=== PATIENT | female | born 1945 | race Caucasian/White ===

== ENCOUNTER → 2024-05-30 09:19 | Outpatient (REF) | payer MEDICARE, OTHER, SELFPAY | LOC: RAD 09:19 | PROVIDERS: ATTENDING PHYSICIAN Internal Medicine Hematology & Oncology; FAMILY PHYSICIAN Family Medicine | DX: M81.8 Other osteoporosis without current pathological fracture (principal); Z78.0 Asymptomatic menopausal state | CPT/HCPCS: 77080 ==

== ENCOUNTER → 2024-12-30 09:04 | Outpatient (REF) | payer MEDICARE, OTHER, SELFPAY | LOC: RCS 09:04 | PROVIDERS: ATTENDING PHYSICIAN Family Medicine | DX: R07.9 Chest pain, unspecified (principal); R00.2 Palpitations | CPT/HCPCS: 93225; 93226 ==

== ENCOUNTER → 2025-01-06 10:54 | Outpatient (REF) | payer MEDICARE, OTHER, SELFPAY | LOC: HWRCS 10:54 | PROVIDERS: ATTENDING PHYSICIAN Family Medicine | DX: R07.9 Chest pain, unspecified (principal) | CPT/HCPCS: 78452; 93017; A9500; J2785 ==

== ENCOUNTER 2025-05-07 20:45 | Inpatient (IN) | payer MEDICARE, OTHER, SELFPAY ==
[2025-05-07] VITALS (42 sets, daily range): BP systolic 93–140; BP diastolic 48–113; BMI 28.9; BMI 28.7
[2025-05-07 15:27] LABS: Hematocrit 44.8 % (37.0-47.0); Hemoglobin 14.3 g/dL (12.0-16.0); Mean Corp Hgb Conc. 31.9 g/dL (33.0-37.0); Mean Corpuscular Volume 85.8 fL (81.0-99.0); Nucleated Red Blood Cells % 0 %; Platelet Count 343 10^3/uL (130-400); Red Cell Dist. Width 14.0 % (11.5-14.5)
[2025-05-07 15:48] LABS: ALT (SGPT) 18 U/L (0-35); AST (SGOT) 25 U/L (14-36); Albumin 4.5 g/dl (3.5-5.0); Alkaline Phosphatase 62 U/L (38-126); Blood Urea Nitrogen 22 mg/dl (7-17); Calcium 10.0 mg/dl (8.4-10.2); Carbon Dioxide 25 mmol/L (22-30); Chloride 107 mmol/L (98-107); Glucose 129 mg/dl (70-99); Potassium 4.9 mmol/L (3.5-5.1); Sodium 141 mmol/L (135-145); Total Protein 7.4 g/dl (6.3-8.2); eGFR > 60.00
--- NOTE | 2025-05-07 16:21 | ED.GENMED ---
History of Present Illness
<ASPEN Pollard - Last Filed: 05/07/25 19:55>
General
Chief Complaint: Heart Rate Problem
Source: patient
Exam Limitations: none
Time Seen by Provider: 05/07/25 16:20
Nursing documentation reviewed up to this point in time: agreed with
History of Present Illness
History of Present Illness:
Patient is an 80-year-old female with past medical history of hypertension sent to the ER by her family doctor Dr. Schwab. Patient has had intermittent episodes of palpitations for the past several weeks however this morning felt increase
symptoms. She was seen at primary care provider and found to be in a flutter. Patient has no prior history of a flutter or A-fib. She does not have a senior interaction designer. She does not have a cardiac history. She is very anxious on arrival.
reports she is a poor historian.
Past History
<ASPEN Pollard - Last Filed: 05/07/25 19:55>
Past History
ED Past Medical History: Cancer (Breast), HTN, NIDDM (Borderline diabetes) and Other (Obesity)
ED Past Surgical History: Appendectomy, and Gynecological (Left breast lumpectomy September 2016)
Social History
Tobacco: Former smoker (Quit at age 30)
Alcohol: Occasional (Rare alcohol)
Personal:
Living: with family
Employment: Retired
Family History
Family History: Hypertension
Phy Exam
<ASPEN Pollard - Last Filed: 05/07/25 19:55>
General Physical Exam
General Presentation: no apparent distress
General age: appears stated age
General Skin: warm and dry
General Habitus: elderly
General Mental: alert
General Hydration: appears well hydrated
Cardiovascular Exam
Cardiovascular Exam: irregularly irregular
Pulmonary Exam
Pulmonary Exam: lungs clear and no respiratory distress
Neurological Exam
Neurological Exam: alert and oriented x3
Musculoskeletal Exam
Musculoskeletal Exam: full ROM
Skin Exam
Skin Exam: normal color and warm/dry
Psychiatric Exam
Psychiatric Exam: normal mood/affect
Course
<ASPEN Pollard - Last Filed: 05/07/25 19:55>
Orders/Labs/Results
Orders:
Orders
05/07/25 14:55
Electrocardiogram (*1) Urgent
Reason for Study: Chest Pain
EKG- Treatment ONCE
05/07/25 15:15
Complete Blood Count/With Diff Urgent
Comprehensive Metabolic Panel Urgent
TSH Reflex To Free T4 Urgent
Comment: ADD ON
05/07/25 16:42
Add On- LAB Urgent
Tests Added?: tsh with reflexive t4
0.9% Sodium Chloride 1000 ml [Nss] 1,000 ml IV BOLUS
Diltiazem HCl [Cardizem] 10 mg IV NOW STA
05/07/25 16:45
Diltiazem 125 mg/125 ml Nss [Cardizem] 125 mg in 125 ml IV PER PROTOCOL
Initial dose in mg/hr, then titrate:: 5
Titrate to keep:: Heart rate 80-100 bpm
Titrate by mg/hr:: 5 mg/hr
Frequency of titrations (minutes):: 15
Maximum dose in mg/hr:: 15
05/07/25 18:56
Apixaban [Eliquis] 5 mg PO NOW STA
Abnormal Lab Results
05/07/25
15:15
MCHC 31.9 L g/dL
(33.0-37.0)
Abs Immat Gran (auto) 0.1 H 10^3/uL
(0-0.05)
Absolute Neuts (auto) 8.2 H 10^3/uL
(1.4-6.5)
Absolute Lymphs (auto) 1.1 L 10^3/uL
(1.2-3.4)
Neutrophils % 83.3 H %
(42.2-75.2)
Lymphocytes % 10.9 L %
(20.5-51.1)
BUN 22 H mg/dl
(7-17)
Glucose 129 H mg/dl
(70-99)
05/07/25 15:15
05/07/25 15:15
Vital Signs
Initial and Last Documented VS:
Initial Vital Signs
Temp Pulse Resp BP Pulse Ox
98.4 F 124 18 133/79 98
05/07/25 15:02 05/07/25 15:02 05/07/25 15:02 05/07/25 15:02 05/07/25 15:02
Last Documented Vital Signs
Temp Pulse Resp BP Pulse Ox
98.4 F 84 22 140/76 96
05/07/25 15:02 05/07/25 19:15 05/07/25 19:15 05/07/25 19:15 05/07/25 18:45
<Kirk Ortega MD - Last Filed: 05/07/25 19:07>
Orders/Labs/Results
Orders:
Orders
05/07/25 14:55
Electrocardiogram (*1) Urgent
Reason for Study: Chest Pain
EKG- Treatment ONCE
05/07/25 15:15
Complete Blood Count/With Diff Urgent
Comprehensive Metabolic Panel Urgent
TSH Reflex To Free T4 Urgent
Comment: ADD ON
05/07/25 16:42
Add On- LAB Urgent
Tests Added?: tsh with reflexive t4
0.9% Sodium Chloride 1000 ml [Nss] 1,000 ml IV BOLUS
Diltiazem HCl [Cardizem] 10 mg IV NOW STA
05/07/25 16:45
Diltiazem 125 mg/125 ml Nss [Cardizem] 125 mg in 125 ml IV PER PROTOCOL
Initial dose in mg/hr, then titrate:: 5
Titrate to keep:: Heart rate 80-100 bpm
Titrate by mg/hr:: 5 mg/hr
Frequency of titrations (minutes):: 15
Maximum dose in mg/hr:: 15
05/07/25 18:56
Apixaban [Eliquis] 5 mg PO NOW STA
Abnormal Lab Results
05/07/25
15:15
MCHC 31.9 L g/dL
(33.0-37.0)
Abs Immat Gran (auto) 0.1 H 10^3/uL
(0-0.05)
Absolute Neuts (auto) 8.2 H 10^3/uL
(1.4-6.5)
Absolute Lymphs (auto) 1.1 L 10^3/uL
(1.2-3.4)
Neutrophils % 83.3 H %
(42.2-75.2)
Lymphocytes % 10.9 L %
(20.5-51.1)
BUN 22 H mg/dl
(7-17)
Glucose 129 H mg/dl
(70-99)
05/07/25 15:15
05/07/25 15:15
Vital Signs
Initial and Last Documented VS:
Initial Vital Signs
Temp Pulse Resp BP Pulse Ox
98.4 F 124 18 133/79 98
05/07/25 15:02 05/07/25 15:02 05/07/25 15:02 05/07/25 15:02 05/07/25 15:02
Last Documented Vital Signs
Temp Pulse Resp BP Pulse Ox
98.4 F 84 22 140/76 96
05/07/25 15:02 05/07/25 19:15 05/07/25 19:15 05/07/25 19:15 05/07/25 18:45
<ASPEN Pollard - Last Filed: 05/07/25 19:55>
MDM/Problems Addressed
Differential Diagnosis Includes:
Not limited arrhythmia, rapid A-fib
MDM/Problems Addressed:
Patient is a 89-year-old female who has had intermittent palpitations recently and today was found to be in A-fib by PCP. Patient was sent here. No prior history of A-fib. Patient presented 130s rapid A-fib however no acute distress at
bedside. Patient was started on Cardizem which did decrease her heart rate. No chest pain no associated shortness of breath. She is not hypoxic. Case reviewed with cardiology. Patient wishes to follow-up with Dr. Henson's group therefore I
spoke with Dr. Velazco on-call patient with no contraindications and started on Eliquis. Will admit to the hospital service as patient is on IV Cardizem for rate control of A-fib
Chronic conditions affecting care:
Hypertension
<ASPEN Pollard - Last Filed: 05/07/25 19:55>
*Pulse Oximetry
SaO2: 98
Oxygen Mode of Delivery: Room air
Patient hypoxic: no
*EKG
Interpreted by ED Provider?: Yes
Heart Rate: 130
Rate: tachycardiac
Rhythm: a-fib
Ischemia: non-specific ST changes
*Critical Care Note
Total Time (30-74mins, 75-104mins- exclusive of procedures): Not Applicable
<ASPEN Pollard - Last Filed: 05/07/25 19:55>
Patient Management
Discussion with other providers: Lumber Kiln Operator (dr velazco )
ED Attending Note
<ASPEN Pollard - Last Filed: 05/07/25 19:55>
-
Portions of this chart may have been created with voice recognition software.� Occasional wrong word or��sound alike� substitutions may have occurred due to the inherent limitations of voice recognition software.
<Kirk Ortega MD - Last Filed: 05/07/25 19:07>
ED Attending Note
Patient seen and examined by attending physician: Yes
I performed the substantive portion of visit, reviewed & personally made and approve the management plan that is documented in note by myself or DAYANA.: Yes
ED Attending Note:
Patient presents with rapid heartbeat. Started this morning but has been intermittent for a while. No anticoagulation. No chest pain or shortness of breath no syncope presented in A-fib RVR in the 130s.
Lungs clear and equal. Heart irregular irregular no murmur. Small scar in the upper chest. No sternotomy scar. Warm and dry. Perfusing well. Extremities unremarkable.
EKG A-fib RVR. Rate control anticoagulation and admission
Discharge Plan
Departure
Patient Disposition: Admit
Date of Disposition: 05/07/25
Time of Disposition: 18:57
Admit to: Telemetry
Admit to doctor: hospitalist
Presentation/result/management discussed w/ accepting MD/DO: Hospitalist
Patient with high blood pressure during this ER visit?: No
Condition: Fair
Covid-19: Not Applicable
Discharge Problem:
Atrial fibrillation
Prescriptions:
New
Eliquis DVT-PE Treat 30D Start 5 mg (74 tabs) tablets,dose pack
See Rx Instructions .ROUTE .COMPLEX Qty: 74 0RF
Rx Instructions:
5 mg twice daily
No Action
nadolol-bendroflumethiazide 40 MG/5 MG tablet
1 tab PO DAILY
letrozole 2.5 MG tablet
2.5 mg PO DAILY
fenofibrate nanocrystallized 145 MG tablet
145 mg PO DAILY
atorvastatin [Lipitor] 20 mg Tablet
20 mg
metformin 1,000 mg Tablet
100 mg
fenofibrate nanocrystallized [Tricor] 145 mg Tablet
145 mg PO DAILY
Bystolic
Referrals:
Cassius Whitfield MD [Family Provider, Family Practice]
Interventions
Interventions:
*Risk Screen - Suicide Last Done: 05/07/25 15:02
*General Assessment Last Done: 05/07/25 15:02
*Neglect/Abuse Screening Last Done: 05/07/25 15:02
ED- Cardiac Assessment Last Done: 05/07/25 19:06
ED- Pulmonary Assessment Last Done: 05/07/25 19:06
Discharge Date and Time
Print Language: FILIPINO
[2025-05-07] MEDS: CARDIZEM 125 IV (17:19)
[2025-05-07] MEDS: CARDIZEM 10 MG IV (17:20)
[2025-05-07] MEDS: NSS 1000 IV (17:21)
[2025-05-07] MEDS: ELIQUIS 5 MG PO (19:09)
--- NOTE | 2025-05-07 19:29 | HPS.HSE ---
Family Physician
-
Family Physician: Cassius Whitfield
Chief Complaint
-
Heart racing sent by PCP for a flutter
History of Present Illness
80-year-old female who was seen at her PCP office today due to complaints of her heart racing fast. She was sent by her PCP thought to be in a flutter however on arrival she was in rapid A-fib. The patient only recalls her heart occasionally
racing she does not remember any palpitations however her at bedside took her to her PCP due to her complaining of her heart racing today. He states she had full workup with labs [address] Schwab. He also reports she has had
some memory impairment and has been weaning off of lorazepam 0.5 mg daily she has not had in the past 1.5 weeks. The patient does ask repetitive questions has difficulty with remembering review of systems. Patient denies headache, fever, chills,
chest pain, shortness of breath, cough, abdominal pain, nausea, vomiting, diarrhea, urinary symptoms. She was reported to be anxious on arrival in the ER. She has past medical history of breast cancer status post left breast lumpectomy September
2017, HTN, DM 2, former smoker quit age 30, anxiety, memory impairment short-term with repetitive questions.
Medical History
Past Medical History
Past Medical History: Reports Other
Additional Past Medical History:
breast cancer status post left breast lumpectomy September 2016
HTN
DM 2
former smoker quit age 30
Anxiety
Short-term memory impairment with repetitive questions
Past Surgical History: Reports Other
Additional Past Surgical History:
Appendectomy
section
Left breast lumpectomy September 2016 secondary to breast cancer
Social History
Tobacco: Former Smoker (Quit age 30)
Alcohol: Occasional
Family History
Family History: Not pertinent
Allergies / Home Medications
Allergies reflects when Allergies were last updated in [facility].
Home Medications with original date entered in [facility]
Allergy/Medication List:
Allergies
Allergy/AdvReac Type Severity Reaction Status Date / Time
No Known Allergies Allergy Unverified 12/31/17 03:44
Home Medications
fenofibrate nanocrystallized 145 mg tablet 145 mg PO DAILY 12/31/17
letrozole 2.5 mg tablet 2.5 mg PO DAILY 12/31/17
nadolol 40 mg-bendroflumethiazide 5 mg tablet 1 tab PO DAILY 12/31/17
Bystolic 05/07/25
apixaban 5 mg (74 tabs) tablets in a dose pack ([employer] DVT-PE Treat 30D Start) See Rx Instructions PO .COMPLEX #74 ea 05/07/25
atorvastatin 20 mg tablet (Lipitor) 20 mg 05/07/25
fenofibrate nanocrystallized 145 mg tablet (Tricor) 145 mg PO DAILY 05/07/25
metformin 1,000 mg tablet 100 mg 05/07/25
Review of Systems
-
History Source: Patient and Family ( at bedside)
A 12 point ROS was completed and negative except as noted: Yes
Constitutional: Denies Fever or Chills
EENT: Denies Sore Throat or Runny Nose
Respiratory: Denies Cough or Trouble Breathing
Cardiac: Reports Palpitations; Denies Chest Pain, Diaphoresis or Syncope
Abdomen/GI: Denies Abdominal Pain, Nausea, Vomiting or Diarrhea
: Denies Dysuria, Frequency, Flank Pain or Incontinence
Musculoskeletal: Denies Joint Pain or Edema
Skin: Denies Itching or Rash
Neurological: Denies Dizzy, Headache or Weakness
Hematologic/Lymphatic: Reports No Symptoms
Psych: Reports Calm
Physical Exam
Vital Signs
Vital Signs
Temp Pulse Resp BP Pulse Ox
98.4 F 84 22 140/76 96
05/07/25 15:02 05/07/25 19:15 05/07/25 19:15 05/07/25 19:15 05/07/25 18:45
Physical Exam
General: Comfortable and Conversant; No Pain, Fever or Chills
HEENT: NormoCephalic, Anicteric, Moist mucous membranes, PERRLA, [place] Conjunctivae and No Ptosis
Respiratory: Clear; No Wheezes
Cardiac: S1/S2 and Irregular Rhythm (A-fib 86 to 103 bpm on monitor); No Murmur, Rub, Gallop or Peripheral Edema
Breast: Deferred by me
GI: Soft, Non Tender, Non Distended, Normal Bowel Sounds and No Hepatosplenomegaly
Rectal: Deferred by Provider
Genito-urinary: Deferred by me
Musculoskeletal: No Clubbing, No Cyanosis and No Edema
Skin: Warm and Dry; No Rash
Neuro: AO x 3 (But poor memory impairment with review of systems does asked repetitive questions there is working diagnosis of memory impairment), No Motor Deficits, Nonfocal/grossly intact, Cranial Nerves Intact and No Sensory Deficits; No Slurred
Speech, Facial Droop, Tremors or Sedated
Psych: Calm
Laboratory Results
-
05/07/25 15:15
05/07/25 15:15
Laboratory Results
Total Bilirubin 0.6 mg/dl (0.2-1.3) 05/07/25 15:15
AST 25 U/L (14-36) 05/07/25 15:15
ALT 18 U/L (0-35) 05/07/25 15:15
Alkaline Phosphatase 62 U/L (38-126) 05/07/25 15:15
Impression/Plan
-
Impression/plan:
Admit to IMU
#New onset rapid A-fib with RVR
- Consult [facility] cardiology-Case was discussed with Dr. Baldwin per ER
- IV Cardizem drip
- Patient started on Eliquis 5 mg in ER will continue Eliquis 5 mg twice daily
- Check TSH with free T4 reflex
-Check 2D echo
# HTN
- Patient currently on IV Cardizem drip will hold Bystolic
#DM 2
Accu-Cheks with SSI, check HgbA1c
-Continue metformin 1000 mg twice daily
HLD
Continue Tricor 145 mg daily, Lipitor 20 mg daily
#Mild memory impairment short-term with repetitive questions
This is fairly new per at bedside they have been weaning off of lorazepam
#Anxiety
Currently has been weaning off of lorazepam 0.5 mg daily last dose was 1.5 weeks ago
#former smoker quit age 30.
#Breast cancer status post left breast lumpectomy September 2016
- Continue letrozole 2.5 mg daily
DVT prophylaxis
Continue Eliquis started today
Full code
discussion with patient and as there are no IMU/IVU beds available as very now charge nurse will bring in hospital bed to make patient comfortable
Patient states his son brought her a hoagie for which she ate. We will give her her evening dose of metformin she is due for
--- NOTE | 2025-05-07 20:23 | W.PN.UPDATE ---
Update Note
Progress Note Update
This is an addendum to H&P written by Vi Wilcox on 05/07/2025. �Patient seen and examined independently with SKATESMAN.
80-year-old female past medical history of breast cancer status post lumpectomy, hypertension, diabetes, former smoker, anxiety, short-term memory impairment, presenting with palpitations for few weeks. �Went to primary care physician who sent her
to the hospital for atrial flutter.
She was noted to be in atrial fibrillation with heart rate 130s.
Patient with new onset atrial fibrillation with RVR.
She was started on Cardizem drip. �She was started on Eliquis. �TSH normal. �Check echocardiogram. �Cardiology consulted.
[2025-05-07] MEDS: GLUCOPHAGE 500 MG PO (20:49)
[2025-05-07 20:51] LABS: Glucose - Point of Care 168 mg/dl (70-99)
--- NOTE | 2025-05-07 23:57 | PTCARENOTE ---
Pt rec'd from ED on stretcher awake,alert accompanied by spouse. Afib ,rate controlled in 80's on telemetry. adm hx taken with pt looking to spouse for most of the answers. When asking about any neurological problems spouse stated he wants to get an
MRI because of pts memory loss.
Cardizem gtt at 10 mg/hr. Resting in bed at present. Pt aware to call nursing for ambulation.
[2025-05-08 03:00] VITALS: BP 87/63
[2025-05-08 03:13] LABS: Hematocrit 41.2 % (37.0-47.0); Hemoglobin 13.2 g/dL (12.0-16.0); Mean Corp Hgb Conc. 32.0 g/dL (33.0-37.0); Mean Corpuscular Volume 86.4 fL (81.0-99.0); Nucleated Red Blood Cells % 0 %; Platelet Count 281 10^3/uL (130-400); Red Cell Dist. Width 14.2 % (11.5-14.5)
[2025-05-08 03:46] LABS: ALT (SGPT) 16 U/L (0-35); AST (SGOT) 21 U/L (14-36); Albumin 4.0 g/dl (3.5-5.0); Alkaline Phosphatase 60 U/L (38-126); Blood Urea Nitrogen 20 mg/dl (7-17); Calcium 9.3 mg/dl (8.4-10.2); Carbon Dioxide 23 mmol/L (22-30); Chloride 111 mmol/L (98-107); Estimated Creatinine Clearance 71 ml/min; Glucose 117 mg/dl (70-99); HDL Cholesterol 28 mg/dl; LDL Cholesterol, Calculated 59 mg/dl; Magnesium 1.4 mg/dl (1.6-2.3); Potassium 4.2 mmol/L (3.5-5.1); Sodium 143 mmol/L (135-145); Total Protein 6.5 g/dl (6.3-8.2); Very Low Density Lipoprotein 48 mg/dl (0-30); eGFR > 60.00
[2025-05-08 07:11] VITALS: BP 118/56
[2025-05-08 07:15] LABS: Glucose - Point of Care 105 mg/dl (70-99)
[2025-05-08 07:37] VITALS: BMI 28.5
--- NOTE | 2025-05-08 07:46 | CON.CAR ---
Addendum entered and electronically signed by Brandon Jeronimo MD 05/08/25 10:28:
I saw and examined the patient.
The Dairy Powder Mixer Operator's note was reviewed and I agree with the note.
Comment:
GEN: No distress, awake, Ox3
HEENT: supple, anicteric, mmm
LUNGS: CTA, no wheezes/rales
CV: Irreg, S1/S2, 1/6 syst LSB, no gallop
ABD: soft, BS+, NT/ND
EXT: No edema
NEURO: Gross non-focal
SKIN: No rash
Plan:
80-year-old female with past medical history of hypertension, hyperlipidemia, diabetes, breast cancer, and memory impairment presents with new onset atrial fibrillation with modestly elevated ventricular rates. She was sent to the emergency room
for evaluation. She has noticed some occasional palpitations. She was started on IV Cardizem for rate control and heart rate significantly improved. Patient does have a history of a fall several weeks ago but in general according to her
her gait has been relatively stable.
Assessment/plan:
Will switch Bystolic to Toprol 25 mg p.o. twice daily and continue a rate control strategy for now. I discussed with her and her that if she remains in A-fib in 3 to 4 weeks would recommend elective cardioversion. They are hesitant to
pursue any procedures with her history of mild dementia. Her [id number] score is 5. Will start Eliquis 5 mg p.o. twice daily. We discussed the importance of avoiding falls.
Her blood pressure is stable on the metoprolol.
She will continue the atorvastatin and fenofibrate for her lipids.
Continue Femara for breast cancer.
Will check echocardiogram today. If echo overall unremarkable she will be stable for discharge today.
Original Note:
Consultation
Consultation Request
Date/Time Consultation Requested: 05/08/2025
Date/Time Consultation Performed: 05/08/2025
Requesting Provider: Dr. Curtis
Performing Provider: Harleen Lino PA-C for Dr. Jeronimo
Reason for Consultation: New afib
Medical History
-
History of Present Illness:
HPI: Lucila is an 80-year-old female with past medical history of hypertension, hyperlipidemia, DM2, breast cancer status post lumpectomy, anxiety, memory impairment, and former tobacco abuse. She was seen by her PCP on 05/07/2025 for evaluation of
heart racing/palpitations. Reportedly noted to be in new atrial fibrillation with RVR during office visit, so referred to the emergency room for evaluation. Patient notes symptoms have been occurring for the past few weeks intermittently. Denies
any chest pain, LE edema, or SOB. Does occasionally have some lightheadedness/dizziness, but has not had any syncope or near syncope. No prior cardiac history. In ER, confirmed to be in rapid atrial fibrillation and started on cardizem gtt for rate
control. HRs improved overnight, but remains in atrial fibrillation. Asymptomatic this AM, notes feeling better with heart rate control. Labwork overall unremarkable with normal K, and TSH. Mag slightly low.
PMH:
Hypertension
Hyperlipidemia
DM2
Breast cancer s/p lumpectomy
Anxiety
Former tobacco abuse
Memory impairment
Past Medical History
Past Medical History: Other (In HPI)
Past Surgical History: Appendectomy, and Other (lumpectomy)
Social History
Tobacco: Former Smoker
Alcohol: Occasional
Drug: None
Personal:
Living: With Family
Employment: Retired
Family History
Family History: Reviewed & Not Pertinent
Allergies / Home Medications
Allergy/AdvReac Type Severity Reaction Status Date / Time
No Known Allergies Allergy Verified 05/07/25 22:09
�Medication �Instructions �Recorded �Confirmed �Type
fenofibrate nanocrystallized 145 145 mg PO DAILY 12/31/17 05/07/25 History
mg tablet
letrozole 2.5 mg tablet 2.5 mg PO DAILY 12/31/17 05/07/25 History
Bystolic 10 mg PO DAILY 05/07/25 05/07/25 History
atorvastatin 20 mg tablet (Lipitor) 20 mg PO DAILY 05/07/25 05/07/25 History
lorazepam 0.5 mg tablet 0.5 mg PO DAILY 05/07/25 05/07/25 History
metformin 1,000 mg tablet 1,000 mg PO BID 05/07/25 05/07/25 History
Review of Systems
-
History Source: Patient
All other systems: Negative unless noted
Physical Exam
Vital Signs
Temp Pulse Resp BP Pulse Ox
97.7 F 76 15 87/63 95
05/08/25 07:08 05/08/25 07:08 05/08/25 07:08 05/08/25 03:00 05/08/25 07:08
Lab Results
05/08/25 03:00
05/08/25 03:00
Physical Exam
General: Well Developed, Well Nourished and No Apparent Distress
HEENT: Normocephalic, Anicteric and Moist Mucous Membranes
Respiratory: Clear and Non Labored Respirations
Cardiac: S1/S2 and Irregular Rhythm
Musculoskeletal: No Clubbing, No Cyanosis and No Edema
Skin: Warm and Dry
Neuro: Awake, Alert and Nonfocal/Grossly Intact
Psych: Calm
Impression / Plan
-
PCP: Dr. Whitfield
Cardiology: None prior to admission, wishes to follow w/ Dr. Yanna Henson after discharge
Impression:
Presented with palpitations
Atrial fibrillation, newly diagnosed, unclear duration
Hypertension
Hyperlipidemia
DM2
Breast cancer s/p lumpectomy
Anxiety
Former tobacco abuse
Memory impairment
Echo 05/08/2025: Study pending
Plan:
-Presented with palpitations which had been intermittent over the past few weeks. Noted to be in atrial fibrillation w/ RVR which was a new diagnosis.
-HR controlled overnight on cardizem @5. Remains in afib, but now asymptomatic with rate control.
-On Bystolic 10mg daily as OP. Will stop cardizem gtt and will transition Bystolic to Toprol 25mg BID for now. Uptitrate as needed for rate control.
-New to Eliquis 5mg BID. CHADSVASC score 5 (Age, Female, HTN, DM). Will ask CM to assess cost.
-Will focus on rate control for now given h/o memory impairment. also prefers to avoid procedures at this time. Can reassess as OP
-Check echo
-TSH within normal limits.
-K stable at 4.2. Mag 1.4, will replete.
-Will arrange follow up w/ cardiology.
HPI: Lucila is an 80-year-old female with past medical history of hypertension, hyperlipidemia, DM2, breast cancer status post lumpectomy, anxiety, memory impairment, and former tobacco abuse. She was seen by her PCP on 05/07/2025 for evaluation of
heart racing/palpitations. Reportedly noted to be in new atrial fibrillation with RVR during office visit, so referred to the emergency room for evaluation. Patient notes symptoms have been occurring for the past few weeks intermittently. Denies
any chest pain, LE edema, or SOB. Does occasionally have some lightheadedness/dizziness, but has not had any syncope or near syncope. No prior cardiac history. In ER, confirmed to be in rapid atrial fibrillation and started on cardizem gtt for rate
control. HRs improved overnight, but remains in atrial fibrillation. Asymptomatic this AM, notes feeling better with heart rate control. Labwork overall unremarkable with normal K, and TSH. Mag slightly low.
Data Reviewed
-
EKG: Tracing Personally Visualized and interpreted
Labs: Labs Reviewed by me
Old Records: Reviewed
[2025-05-08] MEDS: CARDIZEM 125 IV (08:28)
[2025-05-08] MEDS: FEMARA 2.5 MG PO (08:29)
[2025-05-08] MEDS: GLUCOPHAGE 1000 MG PO (08:32)
[2025-05-08] MEDS: TRICOR 145 MG PO (08:32)
[2025-05-08] MEDS: ELIQUIS 5 MG PO (08:32)
[2025-05-08] MEDS: LIPITOR 20 MG PO (08:32)
[2025-05-08 08:46] LABS: Glycohemoglobin (HgbA1c) 7.1 % (4.0-5.6)
[2025-05-08] MEDS: TOPROL XL 25 MG PO (09:05)
[2025-05-08] MEDS: TYLENOL 500 MG PO (10:11)
[2025-05-08 11:08] LABS: Glucose - Point of Care 131 mg/dl (70-99)
[2025-05-08 11:09] VITALS: BP 104/69
--- NOTE | 2025-05-08 11:38 | W.PN.UPDATE ---
Addendum entered and electronically signed by Jasmeet Bower MD 05/08/25 16:33:
Total time spent on d/c = 35 min. This included today's physical exam, progress note, review of laboratory and diagnostic data, preparation of discharge documents and prescriptions, and discussions about the pt's hospital course and discharge plan
with the patient and other medical asst involved in the patient's care.
Addendum entered and electronically signed by Jasmeet Bower MD 05/08/25 16:07:
Echo: EF 50 to 55%, LVH, mild MR.
Case discussed with Dr. Jeronimo and he is cleared the patient for discharge on Toprol and Eliquis. Will recheck the patient's blood pressure prior to discharge.
RN updated
Original Note:
Update Note
Progress Note Update
I saw and evaluated the patient. I reviewed the resident�s note and agree with findings and plan as documented in the resident�s note.
No new complaints.
Gen: NAD, AAOx3.
Eyes: EOMI, PERRLA, no scleral icterus.
Neck: supple.
CV: irreg/irreg, +S1/S2, no m/r/g.
Resp: CTAB anteriorly, no rales, wheezes, or rhonchi.
Abd: +BS, soft, NT, ND
Skin: No rashes.
Neuro: CN 2-12 intact, non-focal.
Psych: Normal mood and affect.
New onset A-fib with RVR:
-was on cardizem gtt, now transitioned to Toprol XL
-cont Eliquis
-check echo
-TSH normal
Other problems:
Essential HTN: Cont Toprol XL
DM2: a1c 7.1%, SSI/accuchecks/metformin
HLD: cont Tricor/Lipitor
Mild short term memory impairment
Anxiety: has been weaning off of lorazepam
Breast CA s/p L breast lumpectomy September 2016: cont letrozole
FULL/Eliquis
--- NOTE | 2025-05-08 11:42 | W.PN.HOSP.TC ---
Today's Communication/Plan
-
- echo pending
Assessment / Plan
Assessment / Plan
New onset rapid A-fib with RVR
- Confirmed on EKG
- Contineu on telemetry
- Cardiology is following
- continue metoprolol
- continue Eliquis 5 mg twice daily
- Tsh normal
- echo pending
hypotension:
- Bp is 87/63, recheck BP, continue to observe, aymptomatic
Diabetes mellitus type 2:
- Accu-Cheks with SSI
- glucose level si 117 and well controlled
-Continue metformin 1000 mg twice daily
Hyperlipidemia:
Continue Tricor 145 mg daily, Lipitor 20 mg daily
Anxiety
- weaned off lorazepam
Breast cancer status post left breast lumpectomy September 2016
- Continue letrozole 2.5 mg daily
DVT prophylaxis
Eliquis
Anticipated Discharge: Today
Subjective/Interval History
-
Date of Service: May 08, 2025
No acute medical complaints.
No overnight events.
Objective Data
-
Labs:
Laboratory Results
05/08/25
03:00
WBC 9.2
Hgb 13.2
Hct 41.2
Plt Count 281
Sodium 143
Potassium 4.2
Chloride 111 H
Carbon Dioxide 23
BUN 20 H
Creatinine 0.7
Glucose 117 H
Calcium 9.3
Total Bilirubin 0.5
AST 21
ALT 16
Alkaline Phosphatase 60
Vital Signs:
Vital Signs
Temp Pulse Resp BP Pulse Ox
97.7 F 95 20 87/63 99
05/08/25 11:08 05/08/25 11:08 05/08/25 11:08 05/08/25 03:00 05/08/25 11:08
Review of Systems
-
History Source: Patient
All other systems: Reviewed and negative
Physical Exam
-
General: Well Developed and Well Nourished
Respiratory: Clear to Auscultation
Cardiac: Irregular Rhythm and Tachycardic
GI: Soft, Nontender, Nondistended and Normal Bowel Sounds
Musculoskeletal: No Clubbing, No Cyanosis and No Edema
Skin: Warm and Dry
Neuro: AO x 3
Psych: Calm
Data Reviewed
-
Labs: Labs Reviewed by me and Discussed with Physician
[2025-05-08] MEDS: MAGNESIUM OXIDE 400 MG PO (12:34)
--- NOTE | 2025-05-08 13:19 | CM ---
Reviewed chart. Met with and Mrs. Lawton and son to review discharge plans. She states prior to admission she resides with her spouse and son in a spilt-level home with one step to enter. She stats she has three steps to get to the main
living area, Kitchen and then nine steps to get to bedroom/full bathroom. She has a bathroom on the lower level. She states prior to admission she was independent with ambulation and adls. She states she does not have any DME in the home. She
states she has a prescription plan with [employer] and uses [facility]. Telephone call to [employer], ([phone]) to check for coverage for Eliquis 5 mg po bid. Her co-pay for retail pharmacy is $38.00 a month
and $38.00 via mail order for 90 days. Reviewed co-pay with them. She is agreeable to the co-pay. Medical work-up in progress. The discharge plan is to return home with her spouse and son when medically stable.
[2025-05-08 15:15] LABS: Glucose - Point of Care 134 mg/dl (70-99)
[2025-05-08 15:16] VITALS: BP 121/82
[2025-05-08 16:38] VITALS: BP 120/82
--- NOTE | 2025-05-08 17:07 | PTCARENOTE ---
Pt received this am in afib, rate in the 80's to 100's. Denies any pain or sob. RA sat 99%. Assisted oob to the BR, gait steady. Cardizem infusing this am at 5mg, then discontinued as ordered. Heart rate in the 120's - 130's at times, cardiology
notified as well as the hospitalist. Pt discharged to home with her . Discharge instructions given and reviewed with pt and her with good understanding and all questions answered.
--- NOTE | 2025-05-08 17:39 | W.DCSUMMARY ---
Discharge Summary
Discharge Data
Date of Admission: 05/07/25
Date of Discharge: 05/08/25
-
Pending Results: No
Hospital Course
Discharging Physician : Dr. Jasmeet Bower and Dr. Rolando Luna
Disposition : Home
Primary care physician : Dr. Whitfield
Principal Discharge diagnosis : New onset rapid A-fib with RVR, hypotension
Chronic Discharge diagnosis : Diabetes mellitus type 2, hyperlipidemia, anxiety, breast cancer status post left breast lumpectomy September 2016
Hospital Course : 80-year-old female with past medical history of hypertension, hyperlipidemia, diabetes, breast cancer, and memory impairment presents with new onset atrial fibrillation with modestly elevated ventricular rates. She was sent to
the emergency room for evaluation. She has noticed some occasional palpitations. She was started on IV Cardizem for rate control and heart rate significantly improved. Patient does have a history of a fall several weeks ago but in general
according to her her gait has been relatively stable.
Problem #1: New onset A-fib with RVR
- EKG on admission showed atrial fibrillation at a ventricular rate of 85 bpm. Patient was placed on telemetry. Cardiology was consulted. [id number] score course 5. During course of hospital stay patient is asymptomatic. Repeat EKG on
discharge shows a ventricular rate of 130 and atrial fibrillation with rapid ventricular response. Echo shows a left ventricular ejection fraction of 50 to 55%. Initially during course of hospital stay patient was placed on IV Cardizem for rate
control that has been now changed to metoprolol oral 25 Mg p.o. twice daily which is to be continued on discharge. Patient also placed on Eliquis 5 mg twice daily daily for anticoagulation. cardiology states that if patient remains in A-fib in 3 to
4 weeks would recommend elective cardioversion, hesitant to pursue any procedures with history of mild dementia, discussed the importance of avoiding falls. Blood pressure stable. Patient is hemodynamically stable for discharge.
Problem #2: Hypotension
-Patient had an episode of hypotension in the course of hospital stay where BP was 87/63, continue to observe and recheck BP, patient is asymptomatic, normalized on discharge.
Problem #3: Diabetes mellitus type 2
-Continued on home dose of metformin 1000 mg twice daily. Continue on discharge. Glucose level on discharge 117 and well-controlled.
Problem #4: Hyperlipidemia
- Continue home dose of Tricor 145 mg daily, Lipitor 20 mg daily on discharge
Problem #5: Anxiety
- Weaning off lorazepam
Problem #6: Breast carcinoma status post left breast lumpectomy September 2016
- Continue with home dose letrozole on discharge
Important imaging findings :
Electrocardiogram on 05/07/2025
Test Reason : CP
Blood Pressure : */* mmHG
Vent. Rate : 130 BPM Atrial Rate : * BPM
P-R Int : * ms QRS Dur : 84 ms
QT Int : 304 ms P-R-T Axes : * 50 221 degrees
QTcB Int : 447 ms
ATRIAL FIBRILLATION WITH RAPID VENTRICULAR RESPONSE
NSSTS
ABNORMAL ECG
WHEN COMPARED WITH ECG OF 31-Dec-2017 04:21,
ATRIAL FIBRILLATION HAS REPLACED SINUS RHYTHM
VENT. RATE HAS INCREASED by 56 bpm
NOW WITH NSSTS
Confirmed by CHUNG KO MD ([id number]) on 05/07/2025 3:03:27 PM
Echocardiogram on 05/08/2025
SUMMARY
1. Left ventricle is small in size with low normal function. LVEF 50 to 55% by visual estimate.
2. Mild left ventricular hypertrophy.
3. Upper normal right ventricular size with normal RV function.
4. Indexed left atrial volume is mildly abnormal (35-41 ml/m2).
5. Aortic sclerosis without stenosis.
6. Mildly dilated right atrium.
7. Mild mitral valve regurgitation.
8. Mild tricuspid regurgitation. Estimated pulmonary artery pressure of 28 mmHg assuming a right atrial pressure of 3 mmHg.
9. There are no prior studies available for comparison.
Procedure findings :
Discharge Plan
-
Patient Disposition: Home (Routine Discharge)
Discharge Diagnosis/Procedures: New onset rapid A-fib with RVR, Hypotension, Diabetes Mellitus type 2, Hyperlipidemia, Anxiety, Breast cancer status post left breast lumpectomy September 2016,
Condition: Fair
Diet: Low Cholesterol and Diabetic, Carb Controlled
Activity: As tolerated
Driving Restrictions: Not until seen by your Dr
Blood Work: CMP in 1 week with PCP
Referrals:
Cassius Whitfield MD [Family Provider, Family Practice] - in less than 1 week
Melissa Du CRNP [Specified Professional Personl, Cardiology] - 06/11/25 9:00 am
Referral Note: You have a follow up visit with Dr. Yanna Henson's [employer], Melissa, at the [facility]. Please call with questions.
Prescriptions:
New
Eliquis 5 mg Tablet
5 mg PO BID 30 Days Qty: 60 11RF
metoprolol succinate 25 mg Tablet Extended Release 24 Hr
25 mg PO BID Qty: 30 0RF
Continued
letrozole 2.5 MG tablet
2.5 mg PO DAILY
fenofibrate nanocrystallized 145 MG tablet
145 mg PO DAILY
atorvastatin [Lipitor] 20 mg Tablet
20 mg PO DAILY
metformin 1,000 mg Tablet
1,000 mg PO BID
lorazepam 0.5 mg tablet
0.5 mg PO DAILY
Rx Instructions:
Taking 1.5 weeks ago
Discontinued
Bystolic
10 mg PO DAILY
Discharge Orders:
Discharge Patient (As Directed); Ordered 05/08/25
Ordered By: Rolando Luna
Care Plan Goals
Care Plan Goals:
Problem: Readiness for enhanced knowledge related to diagnosis and treatment plan
Goal: Understand your diagnosis and treatment plan needs, including medications if applicable.
Instructions: Know your diagnosis, underlying causes and treatment plan options, including medications if applicable. Consult with your health care team to learn about your diagnosis and treatment plan, including medications if applicable.
Discharge Date and Time
Discharge Date/Time: 05/08/25 17:36
Print Language: MONTSERRATIAN
== END 2025-05-08 17:36 | disposition home or self-care (01) | DRG 309 ==
LOC: IVU 20:45
PROVIDERS: Clinical Nurse Specialist Family Health; Emergency Medicine; ADMITTING PHYSICIAN Hospitalist; ATTENDING PHYSICIAN Internal Medicine; EMERGENCY PHYSICIAN Emergency Medicine; FAMILY PHYSICIAN Family Medicine; OTHER PHYSICIAN Internal Medicine Cardiovascular Disease
DX: I48.91 Unspecified atrial fibrillation (principal); F03.A4 Unspecified dementia, mild, with anxiety; I95.9 Hypotension, unspecified; E78.5 Hyperlipidemia, unspecified; I10 Essential (primary) hypertension; E11.9 Type 2 diabetes mellitus without complications; E66.9 Obesity, unspecified; Z79.01 Long term (current) use of anticoagulants; Z79.84 Long term (current) use of oral hypoglycemic drugs; Z79.899 Other long term (current) drug therapy; Z85.3 Personal history of malignant neoplasm of breast; Z87.891 Personal history of nicotine dependence
CPT/HCPCS: 80053; 80061; 82962; 83036; 83735; 84443; 85025; 93005; 93306; 96365; 96366; 99285

== ENCOUNTER 2025-06-15 09:06 | Day surgery (SDC) | payer MEDICARE, OTHER, SELFPAY ==
[2025-06-15 10:02] LABS: Glucose - Point of Care 134 mg/dl (70-99)
--- NOTE | 2025-06-17 16:14 | ITS.CL.CARDI ---
Engineering Design Manager - Cardioversion
Cardioversion
Procedure Report:
Date of Procedure: 06/15/25
Procedure: Cardioversion
Indication: Symptomatic atrial fibrillation
Performing Physician: Reyna Vega DO [facility]
Technique: The patient was brought to the holding area. Signed informed consent was obtained. A time out was called and performed. The patient was anesthetized by the anesthesia service. Anticoagulation status was reviewed and appropriate. R2 pads
were placed anteriorly and posteriorly. A 200 J synchronized biphasic shock restored normal sinus rhythm without significant bradycardia. There were no complications.
Conclusion: Uncomplicated cardioversion from atrial fibrillation to sinus rhythm.
Recommendation: Routine post cardioversion care. Continue [facility] anticoagulation.
== END 2025-06-15 11:00 | disposition home or self-care (01) ==
LOC: CATH 09:06
PROVIDERS: ATTENDING PHYSICIAN Internal Medicine Cardiovascular Disease; FAMILY PHYSICIAN Family Medicine; OTHER PHYSICIAN Internal Medicine Cardiovascular Disease
DX: I48.0 Paroxysmal atrial fibrillation (principal); I10 Essential (primary) hypertension
CPT/HCPCS: 82962; 92960; 93005

== ENCOUNTER → 2025-09-15 10:15 | Outpatient (REF) | payer MEDICARE, OTHER, SELFPAY ==
[2025-09-15 10:53] LABS: Hematocrit 45.9 % (37.0-47.0); Hemoglobin 14.8 g/dL (12.0-16.0); Mean Corp Hgb Conc. 32.2 g/dL (33.0-37.0); Mean Corpuscular Volume 83.2 fL (81.0-99.0); Nucleated Red Blood Cells % 0 %; Platelet Count 323 10^3/uL (130-400); Red Cell Dist. Width 14.8 % (11.5-14.5)
[2025-09-15 11:04] LABS: ALT (SGPT) 18 U/L (0-35); AST (SGOT) 22 U/L (14-36); Albumin 4.9 g/dl (3.5-5.0); Alkaline Phosphatase 52 U/L (38-126); Blood Urea Nitrogen 29 mg/dl (7-17); Calcium 10.6 mg/dl (8.4-10.2); Carbon Dioxide 24 mmol/L (22-30); Chloride 107 mmol/L (98-107); Glucose 121 mg/dl (70-99); Magnesium 1.5 mg/dl (1.6-2.3); Potassium 4.9 mmol/L (3.5-5.1); Sodium 138 mmol/L (135-145); Total Protein 7.8 g/dl (6.3-8.2); eGFR 41.06
[2025-09-15 11:06] LABS: INR 1.53; PT 18.5 Sec (11.4-14.6)
== END ==
LOC: CATH 10:15
PROVIDERS: ATTENDING PHYSICIAN Internal Medicine Cardiovascular Disease; FAMILY PHYSICIAN Family Medicine
DX: I48.0 Paroxysmal atrial fibrillation (principal)
CPT/HCPCS: 36415; 75572; 80053; 83735; 85025; 85610; 86850; 86900; 86901; 93005; Q9967